=== PATIENT | male | born 1960 | race Caucasian/White ===

== ENCOUNTER 2019-09-22 09:54 | Emergency (ER) | payer OTHER ==
[2019-09-22] MEDS ORDERED: Ibuprofen 600 MG Tab PO ONE (10:21)
--- NOTE | 2019-09-22 11:20 | CR ---
Thoracic spine: AP and lateral views of the thoracic spine were obtained. Mild disc space narrowing is noted within the thoracic spine. Mild scoliosis is noted. Pedicles are intact. No subluxation or fracture is appreciated. Impression: 1. Mild scoliosis and mild scattered disc space narrowing. Diagnostic code #2 This report was dictated in MDT
--- NOTE | 2019-09-22 11:27 | CR ---
Chest: 2 views of the chest were obtained. Comparison: No previous chest imaging is available. Fractures are seen within the posterior 5th and 6th ribs. Lungs are clear with no acute parenchymal change. Heart size and mediastinum are normal. Impression: 1. Fractures within the posterior right 5th and 6th ribs. These could be acute or subacute in age. Please correlate with the patient's symptoms. 2. 2 view chest x-ray is otherwise unremarkable. Diagnostic code #3 This report was dictated in MDT
--- NOTE | 2019-09-22 11:32 | EDM.PDOC ---
ED [facility] GENERAL MEDICAL PROBLEM - General Chief Complaint: Chest Pain Stated Complaint: PAIN IN RIBS Time Seen by Provider: 09/22/19 11:57 Source of Information: Reports: Patient History Limitations: Reports: No Limitations - History of Present Illness INITIAL COMMENTS - FREE TEXT/NARRATIVE: Patient is a 59-year-old male past medical history of hypertension presenting with a chief complaint of right-sided back pain. Patient states that the pain is been ongoing since May. Patient states he had a fall out of his truck at that period of time. Ever since then he has been experiencing this pain. He states he was diagnosed with 2 rib fractures and that he was not taking any medication to deal with the pain. 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 He states he does not even take any Tylenol or ibuprofen. States the pain is daily and sometimes radiates to the right side of the chest. Patient denies any shortness of breath or difficulty breathing. Patient stated the pain is worse with coughing or sneezing. Pmhx: Hypertension Pshx: None Family Hx: noncontributory Smoking history? no Etoh use? none Drug use? none In addition to that documented in the HPI above, the additional ROS was obtained : Constitutional: Denies fevers or chills Eyes: Denies vision changes ENMT: Denies sore throat CV: Per HPI Resp: Denies SOB GI: Denies vomiting or diarrhea : Denies painful urination MSK: Denies recent trauma Skin: Denies new rashes Neuro: Denies new numbness or tingling or weakness Endocrine: Denies unexpected weight loss Heme: Denies bleeding disorders I have reviewed the triage vital signs Const: Well nourished, well developed, appears stated age Eyes: PERRL, no conjunctival injection HENT: NCAT, Neck supple without meningismus CV: RRR, Warm, well-perfused extremities RESP: Posterior upper thoracic tenderness. CTAB, Unlabored respiratory effort GI: soft, non-tender, non-distended, no masses MSK: No gross deformities appreciated Skin: Warm, dry. No rashes Neuro: Alert, special effects artist II-XII grossly intact. Sensation and motor function of extremities grossly intact. Psych: Appropriate mood and affect Assessment and plan: Patient is 59-year-old male presenting with right-sided back pain. X-rays demonstrate to posterior rib fractures. There is no evidence of pneumothorax or atelectasis. Patient does not meet criteria for inpatient admission. Patient given ibuprofen. Patient offered additional pain medications but he states he does not want any further pain medications given as he works as a truck driver flatbed. He states that he would just like to know whether they were broken. He was informed of the diagnosis and management of this condition. All questions were addressed and answered. Patient agrees with plan. center of back, right posterior ribs Pain Score (Numeric/FACES): 2 - Related Data Allergies Allergy/AdvReac Type Severity Reaction Status Date / Time No Known Allergies Allergy Verified 09/22/19 10:07 Past Medical History Cardiovascular History: Reports: High Cholesterol, Hypertension Psychiatric History: Reports: Depression Social & Family History - Family History Family Medical History: Noncontributory - Tobacco Use Smoking Status *Q: Never Smoker - Recreational Drug Use Recreational Drug Use: No ED ROS GENERAL - Review of Systems Review Of Systems: See Below ED EXAM,LOWER BACK PAIN/INJURY - Physical Exam Exam: See Below Course - Vital Signs Last Recorded V/S: Last Vital Signs Temp 36.2 C 09/22/19 10:03 Pulse 96 09/22/19 11:56 Resp 18 09/22/19 11:56 BP 131/82 09/22/19 11:56 Pulse Ox 95 09/22/19 11:56 - Orders/Labs/Meds Orders: Active Orders 24 hr Category Date Time Status EKG 12 Lead [EKG Documentation Completion] [RC] STAT Care 09/22/19 10:08 Active Meds: Medications Discontinued Medications Generic Name Dose Route Start Last Admin Trade Name Jonq PRN Reason Stop Dose Admin Ibuprofen 600 mg 09/22/19 10:21 09/22/19 10:28 Motrin PO 09/22/19 10:22 600 mg ONETIME ONE Administration Departure - Departure Time of Disposition: 11:31 Disposition: Home, Self-Care 01 Clinical Impression: Closed rib fracture - Discharge Information Instructions: Rib Fracture, [id number] Referrals: PCP,None [Primary Care Provider] - Forms: ED Department Discharge Additional Instructions: The following information is given to patients seen in the emergency department who are being discharged to home. This information is to outline your options for follow-up care. We provide all patients seen in our emergency department with a follow-up referral. The need for follow-up, as well as the timing and circumstances, are variable depending upon the specifics of your emergency department visit. If you don't have a primary care physician on staff, we will provide you with a referral. We always advise you to contact your personal physician following an emergency department visit to inform them of the circumstance of the visit and for follow-up with them and/or the need for any referrals to a consulting specialist. The emergency department will also refer you to a specialist when appropriate. This referral assures that you have the opportunity for follow-up care with a specialist. All of these measure are taken in an effort to provide you with optimal care, which includes your follow-up. Under all circumstances we always encourage you to contact your private physician who remains a resource for coordinating your care. When calling for follow-up care, please make the office aware that this follow-up is from your recent emergency room visit. If for any reason you are refused follow-up, please contact the [facility] Emergency Department at and asked to speak to the emergency department charge nurse. Sepsis Event Note - Evaluation Sepsis Screening Result: No Definite Risk - Focused Exam Vital Signs: Vital Signs Temp Pulse Resp BP Pulse Ox 09/22/19 11:56 96 18 131/82 95 09/22/19 10:03 36.2 C 94 18 127/80 97 Date Exam was Performed: 09/22/19 Time Exam was Performed: 12:10 - My Orders Last 24 Hours: My Active Orders 09/22/19 10:08 EKG 12 Lead [EKG Documentation Completion] [RC] STAT - Assessment/Plan Last 24 Hours: My Active Orders 09/22/19 10:08 EKG 12 Lead [EKG Documentation Completion] [RC] STAT
== END 2019-09-22 11:56 | disposition home or self-care (01) ==
LOC: MW.ED 09:54
DX: S22.41XA Multiple fractures of ribs, right side, initial encounter for closed fracture (principal); I10 Essential (primary) hypertension; W17.89XA Other fall from one level to another, initial encounter
CPT/HCPCS: 71046; 72070; 93005; 99283; A9270